=== PATIENT | female | born 1990 | race Hispanic/Latino ===

== ENCOUNTER 2018-01-20 02:38 | Emergency (ER) | payer OTHER ==
[2018-01-20 03:00] VITALS: BMI 22.8
[2018-01-20 03:03] VITALS: RESP 18; TEMP 98.5; O2SAT 98
[2018-01-20] MEDS ORDERED: Sodium Chloride 0.9% 1,000 ML IV STA (03:22)
[2018-01-20 04:01] LABS: URINE BILIRUBIN NEGATIVE (NEGATIVE); URINE BLOOD LARGE (NEGATIVE); URINE CLARITY TURBID (Clear); URINE COLOR AMBER (YELLOW); URINE GLUCOSE (UA) NEG (Normal); URINE LEUKOCYTE ESTERASE MOD Leu/uL (Negative); URINE PROTEIN 100 mg/dL (NEGATIVE); WBC CLUMPS MOD /hpf
[2018-01-20 04:15] LABS: BASO % 0.2 % (0.0-2.0); EOS # 0.1 K/uL (0.0-0.7); EOS % 0.8 % (0.0-4.0); HEMOGLOBIN 13.3 g/dL (12.0-16.0); LYMPH # 1.5 K/uL (1.0-4.3); LYMPH % 12.9 % (20.0-40.0); MEAN CELL VOLUME 85.2 fl (81.0-99.0); MEAN CORPUSCULAR HEMOGLOBIN 29.9 pg (27.0-31.0); MEAN CORPUSCULAR HGB CONC 35.1 g/dL (33.0-37.0); MEAN PLATELET VOLUME 8.3 fl (7.2-11.7); MONO # 0.7 K/uL (0.0-0.8); MONO % 6.2 % (0.0-10.0); NEUT # 9.2 K/uL (1.8-7.0); NEUT % 79.9 % (50.0-75.0); NRBC % 0.1 % (0.0-0.0); RBC 4.46 Mil/uL (3.80-5.20); RED CELL DISTRIBUTION WIDTH 12.8 % (11.5-14.5); WHITE BLOOD COUNT 11.5 K/uL (4.8-10.8)
--- NOTE | 2018-01-20 04:19 | ED PDOC ---
HPI: Abdomen Time Seen by Provider: 01/20/18 03:05 Chief Complaint (Nursing): Abdominal Pain Chief Complaint (Provider): Abdominal Pain History Per: Patient History/Exam Limitations: no limitations Onset/Duration Of Symptoms: Days (7 days ago) Current Symptoms Are (Timing): Still Present Additional Complaint(s): 27 yo female, who was diagnosed with a UTI 7 days ago, presents to this ED complaining of suprapubic pain, nausea, back pain, subjective fevers and chills. She reports being prescribed a course of antibiotics,Macrobid, but has not been able to finish the course of antibiotics. Patient denies any other complaints. Past Medical History Reviewed: Historical Data, Nursing Documentation, Vital Signs Vital Signs: Last Vital Signs Temp 98.5 F 01/20/18 03:00 Pulse 80 01/20/18 03:00 Resp 18 01/20/18 03:00 BP 104/70 01/20/18 03:00 Pulse Ox 98 01/20/18 04:25 - Medical History PMH: No Chronic Diseases - Surgical History Other surgeries: Brest reduction, rhinoplasty - Family History Family History: States: Unknown Family Hx - Social History Current smoker - smoking cessation education provided: No Alcohol: Social Drugs: Denies - Home Medications Home Medications: Ambulatory Orders Medication Instructions Recorded Levofloxacin [Levaquin] 750 mg PO DAILY #10 tablet 01/20/18 - Allergies Allergies/Adverse Reactions: Allergies Allergy/AdvReac Type Severity Reaction Status Date / Time No Known Allergies Allergy Verified 01/20/18 03:00 Review of Systems ROS Statement: Except As Marked, All Systems Reviewed And Found Negative Constitutional: Positive for: Fever, Chills Gastrointestinal: Positive for: Nausea, Abdominal Pain Physical Exam - Reviewed Nursing Documentation Reviewed: Yes Vital Signs Reviewed: Yes - Physical Exam Appears: Positive for: Well, Non-toxic, No Acute Distress Head Exam: Positive for: ATRAUMATIC, NORMAL INSPECTION, NORMOCEPHALIC Skin: Positive for: Normal Color, Warm, DRY Eye Exam: Positive for: EOMI, Normal appearance, PERRL ENT: Positive for: Normal ENT Inspection Neck: Positive for: Normal, Painless ROM Cardiovascular/Chest: Positive for: Regular Rate, Rhythm, Murmur Respiratory: Positive for: Normal Breath Sounds Gastrointestinal/Abdominal: Positive for: Normal Exam, Soft, Tenderness ( suprapubic tenderness) Back: Positive for: Normal Inspection. Negative for: L CVA Tenderness, R CVA Tenderness Extremity: Positive for: Normal ROM. Negative for: Pedal Edema, Deformity Neurologic/Psych: Positive for: Alert, Oriented (x3). Negative for: Motor/ Sensory Deficits - Laboratory Results Result Diagrams: 01/20/18 04:08 01/20/18 04:08 - ECG O2 Sat by Pulse Oximetry: 98 (RA) Pulse Ox Interpretation: Normal Medical Decision Making Medical Decision Making: Time: --03:21 Impression: --UTI resurgence Plan: --ED Urine preg --Toradol 15mg IVP --IV Fluids --blood Culture -Urine Culture Reassess --04:12 With history of recent UTI, patient might be having a resurgence of UTI given unfinished course of antibiotics. No CVA tenderness does not suggest pylonephritis. Will check blood work, vitals, and reevaluation --530 Patient is feeling much better, advised her to finish entire course of Abx. Advised to followup with PMD, beth berg will be given. Well appearing, tolerating PO, vitals stable upon discharge. Scribe Attestation: Documented by Vasiliy Muniz acting as a scribe for Roger Moyer MD. Provider Attestation: All medical record entries made by the Scribe were at my direction and personally dictated by me. I have reviewed the chart and agree that the record accurately reflects my personal performance of the history, physical exam, medical decision making, and the department course for this patient. I have also personally directed, reviewed, and agree with the discharge instructions and disposition. Disposition - Clinical Impression Clinical Impression: UTI (urinary tract infection) - Patient ED Disposition Is Patient to be Admitted: No - Disposition Referrals: Beth Morales [Outside] Disposition: Routine/Home Disposition Time: 05:52 Condition: IMPROVED Prescriptions: Levofloxacin [Levaquin] 750 mg PO DAILY #10 tablet Instructions: Urinary Tract Infection, Adult (DC) Forms: Beth Berg (Urdu)
[2018-01-20 04:20] LABS: BLOOD UREA NITROGEN 17 mg/dl (7-17); CALCIUM 9.6 mg/dL (8.4-10.2); GFR AFRICAN-AMERICAN > 60; GFR NON-AFRICAN AMERICAN > 60
[2018-01-20] MEDS ORDERED: levoFLOXacin 750 mg in D5W 750 MG/150 ML BAG IVPB STA (05:21)
[2018-01-20] MEDS ORDERED: levoFLOXacin 750 mg in D5W 750 MG/150 ML BAG IVPB ONE (05:41)
[2018-01-20 07:30] VITALS: BP 101/64; PULSE 79
== END 2018-01-20 07:30 | disposition home or self-care (01) ==
LOC: H.ER 02:38
DX: N39.0 Urinary tract infection, site not specified (principal)
CPT/HCPCS: 80048; 81003; 81025; 85025; 87040; 87086; 96361; 96365; 96366; 96375; 99284; J1885; J7040